=== PATIENT | female | born 2005 | race Caucasian/White ===

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

== ENCOUNTER 2023-06-06 08:00 | Outpatient (RCR) | payer OTHER, SELFPAY ==
--- NOTE | 2023-06-06 09:05 | BH.SGPN.GN ---
Behaviors/Verbalizations/Mental Status: [Patient was alert and oriented, appropriately dressed and groomed. Eye contact was good, motor activity normal, speech within normal limits. Affect congruent, mood anxious. Thoughts linear, logical, no signs of hallucinations or delusions. Reviewed Patients symptom tracker and the patient reports depressed mood, anxiety/panic attacks, agitation/irritability/anger, self-harm urges, and thoughts/risk of suicide within normal limits.] Client Response/Progress/Benefit: [Today was the patients first group. Patient was engaged and open to the discussion. Patient reported her mood to be ?anxious?. Patient stated her win and stressor are related. Patient shared that her being in group was an accomplishment because of how anxious she was. Patient said that she waited outside the building an additional 10 minutes to work the courage up to come inside. Patient was interactive and respectful with other group members about their mental wins and stressors. Patient benefited from the discussion by listening to feedback and giving input on her peer?s stressors and mental health wins. Patient will continue with IOP treatment to help develop healthy skills, promote mood stability, and improve distress tolerance. ] Narrative Note: []
--- NOTE | 2023-06-06 10:15 | BH.SGPN.GN ---
Behaviors/Verbalizations/Mental Status: [] Eye contact is good. Motor activity is appropriate. Appearance is casual. Speech is Appropriate. Mood is depressed/anxious. Affect is congruent. Thoughts are linear and logical. No evidence of psychosis. Client Response/Progress/Benefit: [] Pt was engaged and an active participant in group discussions. Attentive during psychoeducation and participated in group activity. Group discussed what contributes to a person?s perspective and how perspective can positively or negatively impact mental health treatment. Participated in group discussion on things that can interfere with perspective which group identified as; mood, physical state, past experiences, relationships, anger, current stressors, finances, and several others. Pt appeared to benefit from increasing awareness of different perspectives and how they can affect mental health. Pt will continue IOP treatment to prevent decompensation, increase healthy coping, and improve daily functioniong. Narrative Note: []
--- NOTE | 2023-06-06 11:15 | BH.SGPN.GN ---
Behaviors/Verbalizations/Mental Status: []Pt alert and oriented, casually dressed and groomed. Eye contact good. Motor activity appropriate. Speech within normal limits. Affect congruent, mood depressed and anxious. Thoughts linear, logical, no signs of hallucinations or delusions. Client Response/Progress/Benefit: []Pt was attentive and contributed to group discussion. Pt worked with group to identify strategies that can help with challenging negative perspective. Pt completed strengths exploration worksheet, identifying love, humor, modesty, empathy, and creativity as personal strengths. Pt able to acknowledge how these strengths are helping pt and can continue to help pt in mental health journey. Pt identified wanting to work on applying reframing skills when faced with stressors. Benefited from identifying personal strengths and strategies for enhancing use of identified strengths. Pt will continue IOP tx to work on application of distress tolerance skills, improve mood stability, and prevent decompensation. Narrative Note: []
--- NOTE | 2023-06-06 13:41 | BH.MTP ---
Master Treatment Plan Patient Information Program Physician:: Dr. Pro Primary Therapist:: Malaika Flowers, [facility] Psychiatric Diagnoses Psychiatric Diagnoses:: 1. Major depressive disorder, recurrent, severe without psychosis 2. Generalized anxiety disorder 3. Cluster B traits 4. History of bulimia nervosa Diagnosis Code(s):: F33.2 Estimated LOS Estimated LOS (in weeks):: 6 Problem/Goal #1 Problem/Goal #1 Stated Goal:: Client will decrease depression, feeling of worthlessness, and hopelessness due to Major Depression Disorder through Intensive Outpatient Program. Description of Barriers: Potential barriers include: anxious avoidance, negative thoughts, low motivation, hopelessness, and marijuana use. Functional Impact: The patient is a 17-year-old single female with a history of anxiety and depression who was referred to the [facility] behavioral health IOP by her primary care doctor for worsening symptoms of depression and anxiety. 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 She has been having symptoms of sadness, crying, irritability, hopelessness, worthlessness, guilt, low motivation, sleeping 6 hours a night but wants to stay in bed all day, low energy, passive thoughts of . She is a worrier by nature and has racing thoughts at times and ruminates negatively often. She is having panic attacks a few times a week. Objectives Objective #1: Stated Objective: Client will learn and utilize 2-3 healthy coping strategies to manage depressive symptoms as shown by reduced DSM-5 cross-cutting symptom measure score. Interventions: Therapist will utilize CBT techniques to assist client with understanding the connection between thoughts, feelings and behaviors. Education will be provided on behavioral activation. Therapist will assist client in learning internal coping strategies to manage depressive symptoms, along with helping client identify triggers. Discharge Criteria: Client will have achieved this goal when has practiced at least 2 healthy coping strategies and DSM 5 depression scores show a decrease. Target Date: 07/18/23 Review Date: 07/04/23 Objective #2: Stated Objective: Client will identify and replace 2-3 negative thinking patterns that reinforce depressive symptoms, worthlessness, and negative self-talk. Interventions: Therapist will help client identify distorted, negative beliefs about self and replace with more realistic, affirmative messages. Therapist will use CBT to help client increase insight to the connection between thoughts, emotions, and behaviors. Therapist will encourage client to practice thought challenging. Discharge Criteria: Client will have achieved this goal when can identify at least 2 negative thinking patterns and replace thoughts with rational thoughts. Target Date: 07/18/23 Review Date: 07/04/23 Problem/Goal #2 Problem/Goal #2 Stated Goal:: Client will reduce overall frequency, intensity, and duration of the anxiety so that daily functioning is not impaired.? Description of Barriers: Potential barriers include: anxious avoidance, negative thoughts, low motivation, hopelessness, and marijuana use. Functional Impact: The patient is a 17-year-old single female with a history of anxiety and depression who was referred to the [facility] behavioral health IOP by her primary care doctor for worsening symptoms of depression and anxiety. 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 She has been having symptoms of sadness, crying, irritability, hopelessness, worthlessness, guilt, low motivation, sleeping 6 hours a night but wants to stay in bed all day, low energy, passive thoughts of . She is a worrier by nature and has racing thoughts at times and ruminates negatively often. She is having panic attacks a few times a week. Objectives Objective #1: Stated Objective: Client will learn and implement 2-3 calming skills to reduce overall anxiety and manage anxiety symptoms. Interventions: Therapist and group sessions will help client identify physiological warning signs of anxiety, increase awareness of thoughts that increase anxiety, and identify behaviors that reinforce anxious symptoms. Group and individual counseling will teach client calming skills to help manage anxious symptoms. Discharge Criteria: Client will have achieved this goal when can verbalize at least 2 calming skills and reports skills successfully help reduce anxious symptoms. Target Date: 07/18/23 Review Date: 07/04/23 Objective #2: Stated Objective: Client will identify 2-3 cognitive distortions that lead to rumination and learn 2-3 ways to manage these thoughts to better manage anxiety as shown by reduced DSM-5 scores for anxiety. Interventions: Therapist will provide education on the most common cognitive distortions and teach client the connection between thoughts, emotions, and feelings. Therapist will assist client in identifying, challenging, and replacing dysfunctional thoughts with positive, more realistic thoughts. Discharge Criteria: Client will have met this objective when can identify at least 2 cognitive distortions, be able to reframe/challenge thoughts, and DSM 5 scores indicate decrease in anxiety. Target Date: 07/18/23 Review Date: 07/04/23
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
--- NOTE | 2023-06-08 08:40 | BH.NA ---
Physical Data Vital Signs Pulse Rate: 90 Blood Pressure: 160/85 Height/Weight Height: 1.65 m Weight:: 113.398 kg Weight in Pounds: 250.0 lbs Current Medication Compliance Medication Compliance Do you take your medication as prescribed?: Yes Nutritional History Appetite Nutritional Instructions: Describe your appetite:: Good Additional nutritional information:: Client denies change in her weight, but states since starting Effexor she does have a slight decrease in appetite and feels full easier. Functional Assessment Sleep Pattern Describe any problems with sleeping: Client states she sleeps about 5-6 hours per night. Sensory/Communication Assess Communication Problems Do you have difficulty understanding what people are saying?: No Learning Assessment Education What is your level of education?: Some College (in college currently) Medical Problems/History Pain Assessment Do you have acute or chronic pain?: No Surgical History Surgical History Have you had any surgeries? If so, list type and date:: Yes (tonsilectomy) Substance Abuse Substance Abuse Please describe substance abuse in the last 30 days:: Client states she drinks alcohol monthly or less, stating it is not kept in her house due to her father but she will drink it when she is around it. Client states she currently vapes nicotine. Client states she uses marijuana nightly. Client states she drinks usually 2-3 energy drinks per week to keep her awake at work. Mental Status Summary Mental Status Significant Findings/Observations on Appearance and Mood:: Client is alert and oriented x 4. Client is casually groomed. Client is cooperative with assessment. Client makes fair eye contact. Client's voice has normal rate and volume. Client has a somewhat restricted affect. Client makes logical associations and has normal processing. Client denies delusions/hallucinations. Client denies SI. Suicide Assessment Suicidal Ideation Are you currently or have you been suicidal in the past?: Yes Suicidal Intentional Rating Scale (SIRS): Suicidal thoughts (past) Physician Notification Past Psychiatric History MH Treatment Hx Past Psychiatric Medications:: Deonna Lamasoft Age of first mental health symptoms: Client states she was first on medication for anxiety/depression around 8th grade. Describe (age, circumstance, etc) any past hospitalizations: None. Current providers for mental health treatment (counselor, psychiatrist, caser up, etc.): None. Fall Risk Assessment Age Age: Less than 60 Mental Status Mental Status: Willing & able to ask for assistance when needed Physical Status Physical Status: No problems Impairments Impairments: None Elimination Elimination: Continent AND independent Gait or Balance Gait or Balance: Walks independently Hx of Falls History of falls in the past 6 months: No known history Medications/Substances Psychotropics:: Antidepressants Medications/substances used within the past 24 hours or ordered to administer: 1-2 of the medications/substances listed above Total Score Total Points:: 1 RN Summary of Impressions Impressions Recommendations Impressions: Psychiatric Issues: 1. Major depressive disorder, recurrent, severe without psychosis 2. Generalized anxiety disorder 3. Cluster B traits 4. History of bulimia nervosa Level of Care How do the client's current symptoms and functional deficits support need for this level of care?: Client was referred to IOP by her PCP for anxiety and depression. Client is about to end her first year of college, and states school is a stressor. Client states she has been having panic attacks when she feels overwhelmed, stating she had a panic attack yesterday when her car was having problems and shes already had it in the shop so much recently. Client states she has racing thoughts, ruminations, erratic moods and isolates herself. Client states I usually just sit in my room and think and I can't get out of my head. Client denies SI, but states she has had suicidal thoughts in the past. IOP will promote gains and prevent further decompensation while providing social support and skills training.
--- NOTE | 2023-06-08 09:00 | BH.SGPN.GN ---
Behaviors/Verbalizations/Mental Status: [Patient was alert and oriented, appropriately dressed and groomed. Eye contact was good, motor activity normal, speech within normal limits. Affect congruent, mood anxious. Thoughts linear, logical, no signs of hallucinations or delusions. Reviewed Patients symptom tracker and the patient reports depressed mood, anxiety/panic attacks, agitation/irritability/anger, self-harm urges, and thoughts/risk of suicide within normal limits.] Client Response/Progress/Benefit: [ Patient was engaged and open to the discussion. Patient reported her mood to be ?stressed and overwhelmed?. Patients stressor is that her car has started ?skipping? and she thinks the transmission is going bad. She stated she got this car this past February and has been in the shop 5 times already for this same problem. Patients first win was that she was able to have fun at her job yesterday and danced with the [facility]. Patients second win is that her dad allowed her outside cat to come inside. She said this cat is like a support animal for her. Patient was interactive and respectful with other group members about their mental wins and stressors. Patient benefited from the discussion by listening to feedback and giving input on her peer?s stressors and mental health wins. Patient will continue with IOP treatment to help develop healthy skills, promote mood stability, and improve distress tolerance. ] Narrative Note: []
--- NOTE | 2023-06-08 10:10 | BH.SGPN.GN ---
Behaviors/Verbalizations/Mental Status: [] Eye contact is good. Motor activity is appropriate. Appearance is casual. Speech is Appropriate. Mood is depressed. Affect is congruent. Thoughts are linear and logical. No evidence of psychosis. Client Response/Progress/Benefit: [] Pt actively participated in and was engaged during experiential activity. Able to relate activity to group topic of FOF, interacting and taking on a leadership role throughout. Engaged during interactive discussion on what failure means to the group in which peers identified and defined failure. Group was able to identify impact of fear of failure on mental health identifying that it can cause isolation, procrastination, self-sabotage, and negative self-talk?. Discussed that fear of failure has cause her to engage in perfectionistic behaviors and negative self-talk. Attentive during interactive discussion on the role that FOF plays in mental wellness, depression, anxiety, and growth. Benefited from increased awareness of how the role that FOF plays in mental health and decision-making. Will continue in IOP to prevent decompensation, increase healthy coping, improve self-confidence, and to stabilize mood. Narrative Note: []
[2023-06-08 10:44] VITALS: BP 160/85; PULSE 90
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
--- NOTE | 2023-06-08 12:02 | BH.DR.ITP ---
Initial Treatment Plan Patient Information Visit Information: ADMISSION DATE: EXPECTED LOS: 4-6 weeks Problems/Symptoms Problem #1:: Depression Symptom:: Sadness, hopelessness, worthlessness, guilt, low energy, passive thoughts of , irritability Problem #2:: Anxiety Symptom:: Worry, rumination, panic attacks, avoidance
--- NOTE | 2023-06-08 14:39 | BH.MDN ---
Multi-Disciplinary Note Note 45-min Individual: Time Started:: 11:15 Date: 06/08/23 Purpose of session/treatment goals addressed:: Purpose of session was to build rapport, gather background information, and identify treatment goals for IOP. Eye Contact:: Fair Motor Activity:: Restless Appearance:: Casual Speech:: Appropriate Mood:: Anxious Affect:: Congruent Thoughts:: Linear, Logical and No evidence of hallucinations/delusions noted Staff Interventions:: CBT techniques, rapport building, strengths perspective, treatment planning and goal setting Client Response:: Client is seeking IOP treatment after being referred by her PCP due to worsening depression and anxiety. She has been having symptoms of sadness, crying, irritability, hopelessness, worthlessness, guilt, low motivation, sleeping 6 hours a night but wants to stay in bed all day, low energy, passive thoughts of . 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 Client shared Tuesday she struggled with negative thoughts because she convinced herself that her mom prefers to be with her cousin versus being rather her. Client stated this led to her shutting down and getting stuck in her negative thought patterns. used to spend more time with mom but lately they have not done as much together which client recognizes she is personalizing the situation. Client stated she would like to work on improving her view of self because she often thinks negatively about her body and personality. Client reports she struggle with body image issues since seventh grade due to people making negative comments about her weight. Client stated she often wears baggy clothes and sucks in my stomach anytime she is in public. Client reported there is not a lot she likes about her body that is above her waist. Client stated in addition to having negative body image issues she also struggles with anxious avoidance. Client reported her anxiety will keep her from hanging out with her friends or trying new things. Client stated if she has to go to a restaurant she must read the menu before going in because she gets anxious about being an inconvenience to others. Client stated well in IOP she would like to learn how to manage her anxiety better, decrease anxious avoidance, and improve view of self. Risks/Concerns:: Denies suicide ideation, plan, or intention. Has occasional passive thoughts of . No active SI. Future oriented. Progress Toward Goals/Plan:: Progress limited given first week in IOP. Client reports anxiety significantly hinders her ability to engage in new activities and go to certain public places. Client's mental health has kept her from hanging out with her friends as much as she usually would. Client to continue IOP to improve daily functioning, increase healthy coping, and prevent decompensation. Time Stopped:: 12:00
== END 2023-06-12 23:59 ==
LOC: BHIOP 08:00
PROVIDERS: PCP Pediatrics; Referring Provider Psychiatry & Neurology Psychiatry; Visit Provider Psychiatry & Neurology Psychiatry
DX: F33.2 Major depressive disorder, recurrent severe without psychotic features (principal); F41.1 Generalized anxiety disorder
CPT/HCPCS: S9480; 90834; 90853

== ENCOUNTER 2023-06-13 07:15 | Outpatient (RCR) | payer OTHER, SELFPAY ==
[2023-06-13 00:33] VITALS: BP 160/85; PULSE 90
--- NOTE | 2023-06-14 10:15 | BH.SGPN.GN ---
Behaviors/Verbalizations/Mental Status: []Pt alert and oriented, neatly dressed and groomed. Eye contact good. Motor activity appropriate. Speech within normal limits. Affect congruent, mood euthymic. Thoughts linear, logical, no signs of hallucinations or delusions. Client Response/Progress/Benefit: [] Pt was an active participant, AEB taking notes and providing input in group discussions and activities. Attentive during psychoeducation. Pt engaged during interactive discussion in which the group defined self-care and discussed its benefits. Group discussed benefits of self-care which included; better self-esteem, reduce stress, and boost mood. Pt participated in small group where they worked to identify common self-care ?myths.? Pt?s group worked on self-care being too time consuming, self-care being only fun things, and self-care being too expensive. Pt shared she struggles with feeling imbalanced in her friendships because pt ?takes care of all my friends and they don?t do that for me.? Benefited from increased awareness of self-care, its benefits, and the consequences of not utilizing self-care strategies. Will continue IOP tx to prevent decompensation, improve daily functioning, and gain healthy coping skills. Narrative Note: []
--- NOTE | 2023-06-14 11:15 | BH.SGPN.GN ---
Behaviors/Verbalizations/Mental Status: []Pt alert and oriented, casually dressed and groomed. Eye contact good. Motor activity appropriate. Speech within normal limits. Affect congruent, mood anxious. Thoughts linear, logical, no signs of hallucinations or delusions. Client Response/Progress/Benefit: [] Pt engaged participant AEB completing self-assessment worksheet and providing input throughout discussion. Pt completed worksheet identifying current self-care practices and what self-care activities Pt wants to start using. Pt selected social self-care to begin practicing more consistently. Pt plans to do this by planning more time with friends. Appeared to benefit from completing the self-care evaluation and gaining insights into current self-care practices, as well as identifying areas in which pt would like to improve upon. Pt will continue IOP tx to improve distress tolerance, increase healthy coping skills, and prevent decompensation.
--- NOTE | 2023-06-14 15:28 | BH.MDN ---
Multi-Disciplinary Note Note 60-min Individual: Time Started:: :02 Date: 06/14/23 Time Stopped:: 09:55
--- NOTE | 2023-06-16 09:00 | BH.SGPN.GN ---
Behaviors/Verbalizations/Mental Status: [] Eye contact is good. Motor activity is appropriate. Appearance is casual. Speech is Appropriate. Mood is depressed. Affect is flat. Thoughts are linear and logical. No evidence of psychosis. Reviewed daily check in sheet and no reports of suicidal ideations or intent. Client Response/Progress/Benefit: [] Pt was an active participant in group discussion. Attentive. Struggled to identify mental health wins and healthy habits. States I'm not feeling present today and feel like I'm just going through the movements. She talked about experiencing dissociation and how this impacts her mental health and functioning. Reports feeling as if there is no spice or meaning in her life. Life is very mundane. She also talked extensively about obsessive thoughts about a possible relationship however the other person does not appear to be as committed. Insight that she has limited knowledge of what a healthy relationship looks like. Group was supportive and provided feedback which was benefitical. Limited progress notes. Will continue in IOP to maintain safety, increase healthy coping, and improve functioning. Narrative Note: [] Behaviors/Verbalizations/Mental Status: [] Eye contact is good. Motor activity is appropriate. Appearance is casual. Speech is Appropriate. Mood is depressed. Affect is flat. Thoughts are linear and logical. No evidence of psychosis. Reviewed daily check in sheet and no reports of suicidal ideations or intent. Client Response/Progress/Benefit: [] Pt was an active participant in group discussion. Attentive. Struggled to identify mental health wins and healthy habits. States I'm not feeling present today and feel like I'm just going through the movements. She talked about experiencing dissociation and how this impacts her mental health and functioning. Reports feeling as if there is no spice or meaning in her life. Life is very mundane. She also talked extensively about obsessive thoughts about a possible relationship however the other person does not appear to be as committed. Insight that she has limited knowledge of what a healthy relationship looks like. Group was supportive and provided feedback which was benefitical. Limited progress notes. Will continue in IOP to maintain safety, increase healthy coping, and improve functioning. Narrative Note: []
--- NOTE | 2023-06-16 10:05 | BH.SGPN.GN ---
Behaviors/Verbalizations/Mental Status: [] Client alert and oriented, casually dressed and groomed. Eye contact avoidant, Motor activity appropriate. Speech within normal limits. Affect congruent, mood euthymic. Thoughts linear, logical, no signs of hallucinations or delusions Client Response/Progress/Benefit: [] Client was an active participant in group discussion and experiential activity. Attentive during psychoeducation on resilience. Participated in interactive discussion with peers on the definition of resilience and where it comes from. Group identified that resiliency can be impacted by; relationships. past experiences, trauma, and current mental health state. Group also worked together to identify the benefits of being resilient and how it is related to mental health. Group with client's input identified increased confidence, ability to make decisions, and adaptability of benefits of being resilient. Able to relate experiential activity of group juggle to topics of resilience. Worked well with peers in small group in which they identified factors that contribute to resilience. Benefited from increased awareness of resilience and the factors that contribute to building resilience. Will continue in IOP to increase self worth and prevent decompensation Narrative Note: []
--- NOTE | 2023-06-16 11:05 | BH.SGPN.GN ---
Behaviors/Verbalizations/Mental Status: [] Client alert and oriented, casually dressed and groomed. Eye contact avoidant. Motor activity appropriate. Speech within normal limits. Affect congruent, mood euthymic. Thoughts linear, logical, no signs of hallucinations or delusions Client Response/Progress/Benefit: [] Client responded well to session AEB completing the resilience worksheet provided. Client participated in the discussion and worked cooperatively with group to identify strategies to enhance each of the components discussed. Client reports belief they already use resilience trait of ?making connections? Client shared they are people person and people are drawn to them. Client stated they would like to continue to develop resilience trait of ?nuruting a positive view of self? Client seemed to benefit from discussing strategies for improving personal resilience and identifying resilience traits Client already possesses. Will continue IOP tx to reduce negative thinking patterns, and increase overall functioning Narrative Note: []
--- NOTE | 2023-06-20 09:00 | BH.SGPN.GN ---
Behaviors/Verbalizations/Mental Status: [Patient was alert and oriented, appropriately dressed and groomed. Eye contact was good, motor activity normal, speech within normal limits. Affect congruent, mood tired. Thoughts linear, logical, no signs of hallucinations or delusions. Reviewed Patients symptom tracker and the patient reports moderate in depressed mood, anxiety/panic attacks, low to moderate in agitation/irritability/anger and self-harm urges and behaviors. Patient does not report symptoms of thoughts or risk of suicide. ] Client Response/Progress/Benefit: [Patient was engaged and open to the discussion. Patient reported her mood to be ?tired?. Patients first win is that she didn?t ?bed rot? this weekend and went out to socialize with her cousin and some ?new friends?. Patient second win is that her and these new friends she made went to an abandoned hospital and thinks it was haunted. She stated she had a good time and hasn?t done this in a while. Her stressor was that these new friends told her she ?looks like a lesbian? and stated she has reminiscing on this since Tuesday because she doesn?t want to be perceived as one. Patient was interactive and respectful with other group members about their mental wins and stressors. Patient benefited from the discussion by listening to feedback and giving input on her peer?s stressors and mental health wins. Patient will continue with IOP treatment to help develop healthy skills, promote mood stability, and improve distress tolerance. ] Narrative Note: []
--- NOTE | 2023-06-20 10:15 | BH.SGPN.GN ---
Behaviors/Verbalizations/Mental Status: []Patient was alert and oriented, casually dressed and groomed. Eye contact was good, motor activity normal, speech within normal limits. Affect congruent, mood content. Thoughts linear, logical, no signs of hallucinations or delusion Client Response/Progress/Benefit: []Pt participated in the group discussions AEB providing input and taking notes. Attentive during psychoeducation Goal Setting. Participated during the discussion on common barriers which the group identified as: lack of motivation, making excuses, not feeling good enough, and lack of support. Group also identified benefits sense of purpose, improved self-confidence, more motivation for other goals, and improved mental health. Pt reports struggling specifically with barriers of procrastination and not knowing where to start. Benefited from increased awareness of mental health benefits of goals as well as psychoeducation on SMART goal criteria. Will continue in IOP to prevent decompensation, improve daily functioning, and increase ability to manage emotions. Narrative Note: []
--- NOTE | 2023-06-20 11:10 | BH.SGPN.GN ---
Behaviors/Verbalizations/Mental Status: []Pt alert and oriented, casually dressed and groomed. Eye contact good. Motor activity appropriate. Speech within normal limits. Affect congruent, mood euthymic. Thoughts linear, logical, no signs of hallucinations or delusions. Client Response/Progress/Benefit: [] Pt was engaged during discussion and willing to complete the worksheet challenging them to develop a personal SMART goal. Pt chose the goal of giving self credit for good things she does. Pt stated this will improve self esteem and attitude towards herself. Pt identified looking bad, sucking in her stomach, and thinking she is unfixable as potential barriers. Identified solutions such as taking shower to rest, be herself, and talking about feelings. Pt receptive to identifying solutions for these barriers and willing to begin working on this goal. Benefited from this group by developing a short-term SMART goal related to mental health. Will continue IOP tx to increase healthy coping skills, challenge distortions, and prevent decompensation.
--- NOTE | 2023-06-22 09:00 | BH.SGPN.GN ---
Behaviors/Verbalizations/Mental Status: [Patient was alert and oriented, appropriately dressed and groomed. Eye contact was good, motor activity normal, speech within normal limits. Affect congruent, mood content. Thoughts linear, logical, no signs of hallucinations or delusions. Reviewed Patients symptom tracker and the patient reports moderate in anxiety/panic attacks, low to moderate in depressed mood, agitation/irritability/anger, and low in self-harm urges. ?Patient does not report symptoms of thoughts/risk of suicide] Client Response/Progress/Benefit: [Patient was engaged and open to the discussion. Patient reported her mood to be ?stressed?.?Patients stressor is that she has an exam after group and is unsure how she will do. Patients first win is that she gets to go to work today. Patients second win is that although her work, social, and personal life are not very balanced right now, she was able to turn in her homework on time this week. Patient was interactive and respectful with other group members about their mental wins and stressors. Patient benefited from the discussion by listening to feedback and giving input on her peer?s stressors and mental health wins. Patient will continue with IOP treatment to help develop healthy skills, promote mood stability, and improve distress tolerance. ?] Narrative Note: []
--- NOTE | 2023-06-22 10:05 | BH.SGPN.GN ---
Behaviors/Verbalizations/Mental Status: [] Eye contact is good. Motor activity is appropriate. Appearance is casual. Speech is Appropriate. Mood is euthymic. Affect is congruent. Thoughts are linear and logical. No evidence of psychosis. Client Response/Progress/Benefit: [] Pt was actively engaged, providing input at times, and taking notes throughout session. Connected with the topic of pitfalls and listened to group discussion on internal and external barriers that prevent from choosing a healthier path to mental wellness. Group worked together to identify examples of personal internal pitfalls and pt identified theirs to the group. Pt benefited from group as pt learned to better identify and normalize potential barriers to improving mental health symptoms. Pt also gained awareness of the difference between external triggers and self-sabotaging behaviors. Will continue in IOP to stabilize mood, improve functioning, and increase healthy coping skills. Narrative Note: []
--- NOTE | 2023-06-23 10:15 | BH.SGPN.GN ---
Behaviors/Verbalizations/Mental Status: []Pt alert and oriented, neatly dressed and groomed. Eye contact good. Motor activity appropriate. Speech within normal limits. Affect congruent, mood content. Thoughts linear, logical, no signs of hallucinations or delusions. Client Response/Progress/Benefit: [] Pt an active participant throughout. Participated during interactive discussion on defining conflict (internal/external) and possible benefits to conflict. Attentive during psychoeducation on conflict styles and engaged during small group activity in which peers identified the benefits and consequences to each conflict style. Pt identified their primary conflict style as accommodating type which impacts pt?s mental health and self-esteem. Pt shared that she finds benefits with this type too, so pt is not ready to change it. Benefited from increased awareness of the impact of conflict styles in mental health. Will continue in IOP tx to reduce use of unhealthy coping skills, improve boundary setting, and reduce intensity of symptoms. ?? Narrative Note: []
--- NOTE | 2023-06-23 15:00 | BH.SGPN.GN ---
Behaviors/Verbalizations/Mental Status: [] Eye contact is good. Motor activity is appropriate. Appearance is casual. Speech is Appropriate. Mood is content. Affect is congruent. Thoughts are linear and logical. No evidence of psychosis. Client Response/Progress/Benefit: [] Pt was an active participant in group discussions and activity. Engaged with peers in activity and identifying healthy ways to approach each conflict scenario. Group discussed various conflict resolution skills that can be useful in addressing conflict outside of IOP. Benefited from practicing and learning conflict resolution skills during group activity. Able to identify areas pt wants to work on to improve how pt manages conflict both internally and externally. Expressed wanting to work on improving her willingness to make decisions independently rather than relying on others to do it for her. Will continue in IOP to stabilize mood, improve functioning in daily life, and prevent decompensation. Narrative Note: []
--- NOTE | 2023-06-23 15:29 | BH.MDN ---
Multi-Disciplinary Note Note 45-min Individual: Time Started:: 09:00 Date: 06/23/23 Time Stopped:: 09:45
--- NOTE | 2023-06-28 09:05 | BH.SGPN.GN ---
Behaviors/Verbalizations/Mental Status: [] Eye contact is good. Motor activity is appropriate. Appearance is disheveled. Speech is Appropriate. Mood is depressed/irritable. Affect is congruent. Thoughts are linear and logical. No evidence of psychosis. Reviewed daily check in sheet and no reports of suicidal ideations or intent. Client Response/Progress/Benefit: [] Pt participated at times during the group discussion. Attentive. Able to identify mental health wins and healthy habits. Attempting to reconnect with friends and build social support which is beneficial to her mental health. Poor sleep last evening (2-3 hours) and is feeling very tired this AM. Poor sleep related to ruminations last evening. Shared with the group that she is beginning to identify the negatives to cannabis use with increased awareness of how it impacts her physical and mental health. Motivation to decrease her use I'm trying to cut back. Peers provided feedback which was beneficial. Progress noted per pt report. Will continue in IOP to prevent decompensation, stabilize mood, and increase healthy coping. Narrative Note: []
--- NOTE | 2023-06-28 10:15 | BH.SGPN.GN ---
Behaviors/Verbalizations/Mental Status: [] Eye contact is good. Motor activity is appropriate. Appearance is casual. Speech is Appropriate. Mood is euthymic. Affect is full. Thoughts are linear and logical. No evidence of psychosis. Client Response/Progress/Benefit: [] Pt was an active participant, AEB taking notes and providing input in group discussions and activities. Attentive during psychoeducation. Pt engaged during interactive discussion in which the group defined self-care and discussed its benefits. Group discussed benefits of self-care which included; better self-esteem, increased energy, feeling refreshed, increased motivation, reduce stress, and boost mood. Pt participated in small group where they worked to identify common self-care ?myths? or obstacles. Pt identified I never know what to do as an obstacle to self-care. Benefited from increased awareness of self-care, its benefits, and the consequences of not utilizing self-care strategies. Will continue IOP to prevent decompensation, increase healthy coping, and to stabilize mood. Narrative Note: []
--- NOTE | 2023-06-28 11:20 | BH.SGPN.GN ---
Behaviors/Verbalizations/Mental Status: []Pt alert and oriented, casually dressed and groomed. Eye contact good. Motor activity appropriate. Speech within normal limits. Affect congruent, mood euthymic. Thoughts linear, logical, no signs of hallucinations or delusions. Client Response/Progress/Benefit: [] Pt engaged participant AEB completing self-assessment worksheet and providing input throughout discussion. Pt completed worksheet identifying current self-care practices and what self-care activities Pt wants to start using. Pt selected physical and social self-care to begin practicing more consistently. Pt plans to do this by buying a membership to [employer] and scheduling a hangout with her friend. Appeared to benefit from completing the self-care evaluation and gaining insights into current self-care practices, as well as identifying areas in which Pt would like to improve upon. Pt will continue IOP tx to promote mood stability, reduce negative self-talk, and improve daily functioning. Narrative Note: []
--- NOTE | 2023-06-29 15:30 | BH.TPR ---
Treatment Plan Review Demographics Date of Treatment Plan Review:: 06/29/23
--- NOTE | 2023-06-30 09:03 | BH.SGPN.GN ---
Behaviors/Verbalizations/Mental Status: [] Eye contact is good. Motor activity is appropriate. Appearance is casual. Speech is Appropriate. Mood is anxious. Affect is constricted. Thoughts are linear and logical. No evidence of psychosis. Reviewed daily check in sheet and no reports of suicidal ideations or intent. Client Response/Progress/Benefit: [] Pt participated at times during the group discussion. Attentive. Daily symptom tracked notes 3/5 for anxiety and 2/5 for depression. Able to identify mental health wins and healthy habits. Pt stated she was anxious this morning because she was late to IOP. Pt reported she is usually at least 20 minutes early to every appointment and if she isn't she is anxious. Pt stated she made it to IOP despite her anxiety. Pt reported mental health positive as hanging out with friends. Additional positive as getting caught up on some school assignments. Benefited from group support, encouragement, and feedback. Will continue in IOP to decrease anxiety, increase healthy coping skills, and prevent decompensation.
--- NOTE | 2023-06-30 11:10 | BH.SGPN.GN ---
Behaviors/Verbalizations/Mental Status: []Pt alert and oriented, casually dressed and groomed. Eye contact good. Motor activity appropriate. Speech within normal limits. Affect congruent, mood content. Thoughts linear, logical, no signs of hallucinations or delusions. Client Response/Progress/Benefit: []Pt responded well to session, contributing and attentive throughout discussion. Pt identified a negative thought that has kept them stuck. Pt's thought was I am not the 'right' size.? Pt reported when they think this way, they get depressed and anxious resulting in isolating and turning to over-eating which reinforces negative thoughts about her weight. Pt worked to reframe the thought by finding more rational, realistic ways to look at the thoughts and then processed them within group setting. Pt reframed the thought to ?I am built the way I am and am still able to function as a healthy human?. Pt appeared to benefit from practicing challenging negative thinking. Pt will continue IOP tx to prevent decompensation, increase mood stability, and continue to reduce distorted thoughts. ? Narrative Note: []
--- NOTE | 2023-06-30 15:29 | BH.MDN ---
Multi-Disciplinary Note Note 45-min Individual: Time Started:: 10:10 Date: 06/30/23 Time Stopped:: 10:55
--- NOTE | 2023-07-05 09:00 | BH.SGPN.GN ---
Behaviors/Verbalizations/Mental Status: []Eye contact is good. Motor activity is appropriate. Appearance is casual. Speech is Appropriate. Mood is anxious. Affect is constricted. Thoughts are linear and logical. No evidence of psychosis. Reviewed daily check in sheet and denies suicidal thoughts or intention. Client Response/Progress/Benefit: [] Client responded well to session AEB listening to others and sharing thoughts/feelings. Client reported she is feeling stressed out because her mom broke her leg yesterday. No client is anxious that she is feeling responsible for a lot more at the home. Client somewhat receptive to thought challenge by therapist trying to help client recognize that she is currently making assumptions and what her expectations will be because she has not talked to her mom about them yet. Client stated mental positive as having all A's at college this semester. Client reported additional positive as accomplishing anxiety exposure goal by showing up late to IOP today. Appeared to benefit from support from peers. Will continue IOP tx to decrease anxious avoidance, challenge distortions, and prevent decompensation. Narrative Note: []
--- NOTE | 2023-07-05 13:21 | BH.MDN ---
Multi-Disciplinary Note Note 45-min Individual: Time Started:: 10:14 Date: 07/05/23 Purpose of session/treatment goals addressed:: Purpose of session was to address goals 1 and 2 from MTP. Additional focus on discussing tentative discharge plan. Eye Contact:: Fair Motor Activity:: Restless Appearance:: Casual Speech:: Appropriate Mood:: Anxious and Dysthymic Affect:: Constricted Thoughts:: Linear, Logical and No evidence of hallucinations/delusions noted Staff Interventions:: thought challenging, motivational interviewing, CBT techniques, strengths perspective, goal setting, taught coping skills and other (Problem solving) Client Response:: Client stated she is feeling very overwhelmed with all the stressors she has going on her life. Client reported she did find herself falling back in the trap of reflecting on all the negatives last night which did result in her feeling more down and depressed yesterday. Client states she does feel like there is a lot on her plate and does not know how to manage it all. Therapist help client write out her stressors currently and identify one step or strategy that could be helpful to address each thing on her plate. Client shared the things on her plate include best friend leaving for [place], mom just breaking her leg which results in more responsibility for client, school, work, IOP, being social. Client connected with psychoeducation about dialectical thinking in regards to applying that concept and strategy when it comes to her best friend leaving. Therapist men's swim coach client that she can utilize a logical thinking to remind herself that she can be sad about her friend leaving and still function. Client stated she has been thinking that once her friend leaves she is getting go back to how she used to be of being down and depressed and not functioning. Client struggling with the idea of challenging his thoughts due to the connection she has with him. Client able to challenge stress associated with school because she realizes she only has 2 to 3 weeks left before the semester is over and she will get a break. In regards to stress associated with her mom not being able to do as much due to a broken leg therapist encouraged client to have open discussion about expectations and limitations for client due to all the other responsibilities she has. Client recognizes a lot of her anxiety associated with this stressor is anxious thoughts because she has not had an actual conversation with mom yet. Created goal to reach out to a friend today to see if they would be willing to go to health appointment gym tomorrow so client can give it a try. In discussion about discharge client expressed anxiety about being done with IOP. Client stated she will reflect on what she wants to accomplish while she is still in the program prior to discharge. Risks/Concerns:: Denies suicide ideation, plan, or intention. Progress Toward Goals/Plan:: Progress note with client reporting improved ability to get out of the house and has been more social lately. Client able to manage her anxiety a little bit more effectively compared to few weeks ago. Plan is for client to meet with IOP psychiatrist and expressed difficulty with sleep and feeling like her medication is starting to not be as effective. Client to continue IOP to increase utilization of healthy coping skills, challenge distortions, improve view of self, and prevent decompensation. Time Stopped:: 10:57
--- NOTE | 2023-07-06 13:16 | PCM.BH.PN_ITS ---
Progress Note Progress Note: History of Present Illness/Interim History: The patient is a 17-year-old single female with a history of anxiety and depression who is seen in follow- up at the [facility] behavioral health IOP. I last saw the patient 1 month ago and at that time no medication changes were made. According to the staff the patient has been consistent in attendance and engaged in the program. She is trying to decrease her marijuana use. She feels she is learning valuable new skills to help with her mental health issues. She feels her sadness is slowly getting better but she still has some crying episodes. She is trying to start exercising more but is afraid to enter the gym when she goes there as she is afraid people will be looking at her and criticizing her. She is sleeping about 6 hours a night. She no longer has hopelessness but still has occasional worthlessness. She endorses guilt and low energy. She denies now passive thoughts of and denies suicidal ideation, plan for suicide, homicidal ideation, hallucinations, delusions or symptoms of jeevan or hypomania. She is still worrying at but her panic attacks have decreased to only about once a month now. She denies any recent purging. She last cut her wrist 2 weeks ago for 3 days consecutively and she had not cut herself for 2 years prior to that. She is uncertain of the trigger but she states that now she is trying to avoid cutting by wearing a rubber bracelet that she snaps. She denies any other self-harm. Current Psychiatric Medications: [] Effexor XR increased to 75 mg p.o. daily 5 weeks ago. Mental Status Examination: [] The patient is a 17-year-old overweight female who is seen wearing glasses and is casually dressed and groomed with good hygiene. She is ambulatory with a normal gait and has no psychomotor agitation or retardation. Eye contact is good and speech is normal rate and rhythm and fluent with no pressure. Mood is depressed and anxious. Affect is constricted and at times almost tearful. Thought process is goal directed and organized. Thought content: There is no evidence of passive thoughts of , suicidal ideation, plan for suicide, homicidal ideation, hallucinations, delusions or jeevan. The patient is very self-conscious about exercising in public. Reality testing is intact. Judgment is intact. Insight fair. Impulsivity is high. Diagnoses: [] 1. Major depressive disorder, recurrent, severe without psychosis 2. Generalized anxiety disorder 3. Cluster B traits 4. History of bulimia nervosa 5. Primary support in school/career issues Plan: [] The patient will continue the IOP and behavioral health at [facility] as the structure, support, education and group therapy will hopefully prevent worsening of the patient's symptoms which could require hospitalization she felt safe during the interview and if it anytime she does not feel safe she agrees to let us know or go to the emergency room. The risks, options, possible complications and side effects of the medication were discussed with the patient again and she understands and accepts these. She agrees to increase her Effexor XR to 150 mg p.o. daily and prescription is sent in for this. She will continue to follow-up with her outpatient providers and I will see the patient in follow-up in 2 weeks. She will continue to try to decrease her marijuana use.
--- NOTE | 2023-07-07 09:05 | BH.SGPN.GN ---
Behaviors/Verbalizations/Mental Status: [] Eye contact good. Motor activity appropriate. Speech within normal limits. Affect congruent, mood dysthymic. Thoughts linear, logical, no signs of hallucinations or delusions. Reviewed client?s symptom tracker, denies SI, plan, or intent as of 07/07/2023. Client Response/Progress/Benefit: [] Client receptive of session, attentive and willing to process with group. Identified mental health ?wins? as challenging herself to use opposite action to put on her workout clothes before group so she is more likely to go to the gym following groups for the day. Reports struggling with following through with this goal and has already begun to talk herself out of it today. Receptive of suggestions and supportive feedback from the group. Went on to identify an additional win as having straight A's this semester despite mental health struggles. Identified current stressor as upcoming finals and shared feeling burned out. Did well to identify skills she can use and giving herself things to look forward to after completing schoolwork for the day. Client appeared to benefit from group support and encouragement. Recommended continued IOP tx to continue to improve mood stability, promote consistent skill application, and prevent decompensation. Narrative Note: []
--- NOTE | 2023-07-07 10:10 | BH.SGPN.GN ---
Behaviors/Verbalizations/Mental Status: []Eye contact is good. Motor activity is appropriate. Appearance is casual. Speech is Appropriate. Mood is euthymic. Affect is congruent. Thoughts are linear and logical. No evidence of psychosis. Client Response/Progress/Benefit: [] Pt was an active participant in activity and taking notes during group discussion. Attentive during psychoeducation and interactive discussion on coping skills included why people use unhealthy skills. Group came up with list of unhealthy coping skills and pt identified personal ones as substances, sleep, letting negative thoughts overpower her, and working too much. Group discussed the effects of how unhealthy coping skills can impact mental health in a negative way. Participated during experiential activity and was able to relate the activity to group topic regarding the benefits of developing strong internal and external support system. Benefited from increased understanding of unhealthy coping skills and the need for developing healthy internal and external coping skills. Pt will continue IOP tx to prevent decompensation, improve daily functioning, and increase distress tolerance [place]. Narrative Note: []
--- NOTE | 2023-07-07 11:10 | BH.SGPN.GN ---
Behaviors/Verbalizations/Mental Status: []Pt alert and oriented, casually dressed and groomed. Eye contact good. Motor activity appropriate. Speech within normal limits. Affect congruent, mood anxious and euthymic. Thoughts linear, logical, no signs of hallucinations or delusions. Client Response/Progress/Benefit: [] Pt responded well to session, taking notes and contributing when prompted. Group discussed the different categories of coping skills which included distraction, emotional release, grounding, self-love, and thought challenging.? Pt participated in creating a coping skills ?menu? from the five categories of coping skills. Pt's coping skill menu included: music, painting, positive self-talk, and self-compassion. Appeared to benefit from increasing repertoire of healthy coping skills. Will continue IOP tx to prevent decompensation, improve daily functioning, and increase distress tolerance skills. Narrative Note: []
--- NOTE | 2023-07-12 09:05 | BH.SGPN.GN ---
Behaviors/Verbalizations/Mental Status: [] Eye contact is good. Motor activity is appropriate. Appearance is disheveled. Speech is Appropriate. Mood is depressed/irritable. Affect is flat. Thoughts are linear and logical. No evidence of psychosis. Reviewed daily check in sheet and no reports of suicidal ideations or intent. Client Response/Progress/Benefit: [] Pt participated when prompted. Attentive. I'm stressed today. Daily symptom tracker notes 4/5 for irritability, 3/5 for depression, and 1/5 for self-harm urges. Numerous tests, assignments, and projects are coming due to next week as her semester is ending which is stressful. She has not been keeping up with her assignments. She set aside time recently however didn't get to far when attempting to complete her responsibilities. Decreased sleep and external commitments such as work and IOP in her eyes have led to limited progress on school work. Feeling overwhelmed with urges to give up or not complete assignments. Insight that this is self-sabotage. Group reframed her negative thinking and cognitive distortions and provided feedback/strategy to identify an assignment at a time and place small goals which may seem less daunting. Limited progress. Will continue in IOP to maintain safety, increase healthy coping,and to prevent decompensation. Narrative Note: []
--- NOTE | 2023-07-12 10:10 | BH.SGPN.GN ---
Behaviors/Verbalizations/Mental Status: []Eye contact is fair. Motor activity is appropriate. Appearance is casual. Speech is Appropriate. Mood is anxious. Affect is constricted. Thoughts are linear and logical. No evidence of psychosis. Client Response/Progress/Benefit: []Pt participated during the group discussion. Attentive during psychoeducation and actively engaged during experiential activity. Participated during interactive discussion on aspects of fixed mindset. Group identified several aspects of fixed mindset which include: inflexible, belief that one cannot grow, absolute thinking, and all of one's skills, traits, and behaviors can't change. Group identified personal examples of fixed thinking in which pt shared personal fixed thought as I'm always going to be this way. Benefited from increased understanding of personal fixed mindsets and how they can impact mental health. Will continue in IOP to improve view of self, challenge distortions, and prevent decompensation.
== END 2023-07-12 23:59 ==
LOC: BHIOP 07:15
PROVIDERS: PCP Pediatrics; Referring Provider Psychiatry & Neurology Psychiatry; Visit Provider Psychiatry & Neurology Psychiatry
DX: F33.2 Major depressive disorder, recurrent severe without psychotic features (principal); F41.1 Generalized anxiety disorder; F50.2 Bulimia nervosa; Z79.899 Other long term (current) drug therapy
CPT/HCPCS: S9480; 90832; 90834; 90837; 90853

== ENCOUNTER 2023-07-13 06:32 | Outpatient (RCR) | payer OTHER, SELFPAY ==
[2023-07-13 00:44] VITALS: BP 160/85; PULSE 90
--- NOTE | 2023-07-19 09:00 | BH.SGPN.GN ---
Behaviors/Verbalizations/Mental Status: [] Client alert and oriented, casual appearance. Eye contact fair. Motor activity appropriate. Speech within normal limits. Affect congruent, mood anxious and sad. Thoughts linear, logical, no signs of hallucinations or delusions. Reviewed client?s symptom tracker, no risk for suicidal ideation, plan, or intent. Client Response/Progress/Benefit: [] Client responded well to session AEB listening to others and sharing thoughts/feelings. Client stated she is feeling confused because she is experiencing numerous emotions at once. Client stated she is feeling sad because her best friend just moved out of state for work. Client reported she is trying to manage her emotions/mood since he left, but stated it's been a challenge. Client stated a mental health positive is that she has an upcoming trip with friends that she is excited about. Client stated she has been doing overall okay during the day with her mood and functioning, but struggles with lower mood in the evening. Appeared to benefit from support from peers. Will continue IOP tx to increase consistent use of healthy coping skills, challenge distortions, and prevent decompensation.
--- NOTE | 2023-07-19 10:05 | BH.SGPN.GN ---
Behaviors/Verbalizations/Mental Status: []Eye contact is good. Alert and oriented. Motor activity is appropriate. Appearance is casual. grooming is appropriate. Speech is Appropriate. Mood is dysthymic. Affect is congruent. Thoughts are linear and logical. No evidence of psychosis or hallucinations. Client Response/Progress/Benefit: []Client an active participate AEB providing contributions, listening attentively to others, and taking notes throughout. The group identified the impact of emotions on communication such as change in tone, body language, shutting down, misperceiving the communication, and willingness to communicate. Client shared struggling with shutting down when experiencing increased anger or sadness. During group activity, client did well to challenge herself to participate and reflected on feeling frustrated when struggling while trying to communicate instructions to fellow participants in order to accomplish the group goal. Client benefited from session by gaining an increased understanding on the importance of managing emotions to improve daily functioning. Client will continue IOP to further improve mood stability, improve use of skills for better symptom management, and prevent decompensation. Narrative Note: []
--- NOTE | 2023-07-19 13:35 | BH.MDN ---
Multi-Disciplinary Note Note 45-min Individual: Time Started:: 11:10 Date: 07/19/23 Purpose of session/treatment goals addressed:: Purpose of session was to address goals 1 and 2 from [facility]. Eye Contact:: Fair Motor Activity:: Restless Appearance:: Casual Speech:: Appropriate Mood:: Anxious and Depressed Affect:: Constricted Thoughts:: Linear, Logical and No evidence of hallucinations/delusions noted Staff Interventions:: thought challenging, CBT techniques, discharge planning, strengths perspective and goal setting Client Response:: Client reported she has been working on reframing thoughts and looking at the positives more often. Client stated she has been more irritable with parents because they keep checking in on her. Client stated she feels like they are asking if she is okay all the time. Client responded well to therapist challenging her perspective, helping client recognize that her parents are anxious about her due to her recent mental health struggles. Client able to see this perspective and discussed strategies to manage this stressor. Client reported she did have passive thoughts of 2 days ago, but was able to manage the thoughts effectively. Client stated her biggest goal is to get her finals for college completed. Client stated she will have decreased stress once she is on break from college for the summer. Client stated she is feeling good about next week being her last week in [facility]. client reported she knows she has the skills needed to help her manage her symptoms. Client admits she needs to work on using her skills more consistently. Client reported she is managing stressors more effectively lately by not ruminating on the situations or moping for multiple days. Risks/Concerns:: Denies suicidal ideation, plan, or intention to date. Progress Toward Goals/Plan:: Progress noted with client reporting ability to manage passive thoughts of 2 days ago. Client also reporting improved mood management, decreased ruminations of stressors, and trying to challenge distorted thoughts. Client still reporting moments in which she stays stuck on the negative. Client is to continue IOP to increase consistent use of healthy coping skills, challenge distorted thoughts, and prevent decompensation. Plan is for client to discharge from [facility] next week. Time Stopped:: 12:00
--- NOTE | 2023-07-27 09:05 | BH.SGPN.GN ---
Behaviors/Verbalizations/Mental Status: [] Eye contact good. Motor activity appropriate. Speech within normal limits. Affect congruent, mood content. Thoughts linear, logical, no signs of hallucinations or delusions. Reviewed client?s symptom tracker, denies SI, plan, or intent as of 07/27/2023. Client Response/Progress/Benefit: [] Client receptive of session, attentive and willing to process with group. Identified mental health ?wins? today as using opposite action to continue to get out the house and reduce overall isolation. Noted that her cousin has been helpful in encouraging her to be social. Additional win noted as making plans to spend time with two friends and get lunch following group today. Identified current stressor as accidentally missing one of her finals and not yet hearing back from her professor on whether or not she will be able to make it up. Receptive of encouragement from the group. Recommended continued IOP tx to continue to improve mood stability, promote continued socialization, and prevent decompensation. Narrative Note: []
--- NOTE | 2023-07-27 11:08 | BH.SGPN.GN ---
Behaviors/Verbalizations/Mental Status: []Pt alert and oriented, casually dressed and groomed. Eye contact good. Motor activity appropriate. Speech within normal limits. Affect congruent, mood content. Thoughts linear, logical, no signs of hallucinations or delusions. Client Response/Progress/Benefit: []Pt engaged participant AEB listening attentively to others and providing input throughout group. Pt worked within their small group to identify strategies to manage inappropriate guilt. Identified a personal example of inappropriate guilt as ?saying sorry for everything I do.? Insight cues a feeling of being a burden. Pt wants to work on combatting inappropriate guilt by practicing self-forgiveness and challenging distortions. Pt seemed to benefit from learning about strategies to manage appropriate and inappropriate guilt. Pt will continue IOP tx to promote mood stability and reinforce healthy coping skills. Narrative Note: []
--- NOTE | 2023-07-27 12:12 | PCM.BH.PN_ITS ---
Progress Note Progress Note: History of Present Illness/Interim History: The patient is a 17-year-old single, female with a history of anxiety and depression who is seen in follow- up at the [facility] behavioral health IOP. I last saw the patient 3 weeks ago and at that time her Effexor XR was increased to 150 mg daily. She has tolerated this change well and has been compliant with her medication. The patient wished to discuss her recent appointment to be evaluated for ADHD and had some documentation from this appointment supporting the diagnosis. Patient states that she does not study and never has. She just recently finished and is on break from her college exams and states that she thinks she did okay overall and her grades are A's and B's. She did miss 1 exam because she thought it was a different time and she may fail that class if she cannot take the exam at a different time. She plans to contact her professor and discuss her mental health issues during this time also. She denies passive thoughts of , hopelessness, suicidal ideation, plan for suicide, homicidal ideation, hallucinations or delusions. She is looking forward to vacation and has vacations planned this summer with friends and family. She is still working as an [employer] part-time. She has not cut herself in about 5 weeks now and is using the skills learned in the IOP to prevent self- harm. She denies any purging. She feels that overall her mood is less depressed now and less anxious. Current Psychiatric Medications: [] Effexor XR 150 mg p.o. daily (x 3 weeks) Mental Status Examination: [] Patient is a 17-year-old overweight female who wears glasses and is casually dressed and groomed with good hygiene. She has no psychomotor agitation or retardation. Eye contact is good and speech is normal rate and rhythm and fluent with no pressure. Mood is mildly depressed and anxious. Affect is minimally constricted. Thought process is goal-directed and organized. Thought content: Patient is hopeful for the future and looking forward to vacation. There is no evidence of passive thoughts of , suicidal ideation, plan for suicide, homicidal ideation, hallucinations, delusions. Reality testing is intact. Judgment is intact. Insight fair. Impulsivity is high. Diagnoses: [] 1. Major depressive disorder, recurrent, moderate 2. Generalized anxiety disorder 3. Cluster B traits 4. Possible AD D 5. History of bulimia nervosa 6. Primary support and school/career issues Plan: [] Patient may discharge soon from the [facility] as she has made some progress and is looking forward to her summer vacations. She felt safe during the interview and if it anytime she does not feel safe she will let us know or go to the emergency room. No medication changes were made today. She will continue to follow-up with her outpatient providers and I will see the patient in follow- up while in the IOP program. She will continue to try to decrease her marijuana use.
--- NOTE | 2023-07-28 09:00 | BH.SGPN.GN ---
Behaviors/Verbalizations/Mental Status: []pt eye contact good, casually dressed, motor activity appropriate, speech normal rate and tone, mood euthymic and anxious, congruent affect, thoughts linear and intact, no evidence of delusions or hallucinations. Per daily symptom tracker pt denies SI and intention. Client Response/Progress/Benefit: [] Client responded well to session AEB listening to others and sharing thoughts/feelings. On her symptom tracker pt reported a 2/5 for depression and a 4/5 for anxiety. Pt stated she does feel like her mood is better today. Client reported mental health positive as hanging out with friends recently. Stated she went clothes shopping with them and started to feel a little down because one of the stores didn't have her size clothing. Pt shared she was able to challenge her negative thoughts and find a store that she could buy clothes from. Client stated additional positive as being able to keep up with her bills. Stated consistent stressor is money worries. Appeared to benefit from support from peers. Will continue IOP tx to promote use of healthy coping skills, challenge distorted thoughts, and prevent decompensation. Narrative Note: []
--- NOTE | 2023-07-28 11:05 | BH.SGPN.GN ---
Behaviors/Verbalizations/Mental Status: [] Eye contact is good. Motor activity is appropriate. Appearance is casual. Speech is Appropriate. Mood is content. Affect is congruent. Thoughts are linear and logical. No evidence of psychosis Client Response/Progress/Benefit: [] Pt was an active participant in group discussion and activity. Worked with group to identify strategies to help overcome barriers and obstacles to desired reality. Group developed strategies for the common barriers. Identified personal barriers to desired reality and choose one obstacle to work. Pt stated she wants to work on barrier of negative body image by practicing consistent self-care. Pt seemed to benefit from increased repertoire of healthy coping skills/strategies to overcome common barriers to moving forward. Pt is to continue IOP to improve confidence, increase healthy coping skills, and prevent decompensation. Narrative Note: []
--- NOTE | 2023-07-28 13:36 | BH.MDN_ITS ---
Multi-Disciplinary Note Note 30-min Individual: Time Started:: 10:15 Date: 07/28/23 Purpose of session/treatment goals addressed:: Purpose of session was to identify treatment progress, complete maintenance plan and solidify aftercare plans. Eye Contact:: Good Motor Activity:: Restless Appearance:: Casual Speech:: Appropriate Mood:: Anxious Affect:: Full Thoughts:: Linear, Logical and No evidence of hallucinations/delusions noted Staff Interventions:: thought challenging, CBT techniques, discharge planning, strengths perspective, reviewed DSM-5, goal setting and other (maintenance plan) Client Response:: Client stated things have been better in the last week. Client reported she is still sad about her best friend leaving for a job but feels like she is been coping better with that compared to previous times when he has left. Client reported she reach out to be a professor about a final that she missed and is worried she is going to fail the class if the professor will give her an extension. Client stated although it is stressful she recognizes that she can easily just retake the class and improve her grades. Client stated work has been a good distraction for her but at times does get sad because of the loss at the longterm. 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 Client expressed anxiety about asking for this raise but recognizes that a lot of the new employees are making more than she is. Client reflected on the treatment progress she has made since starting IOP and recognizes she has improved with decreased depression and anxiety. Client admits that she did not always follow through with homework or utilizing skills consistently. Client worked with therapist to complete maintenance plan in which she identified triggers, warning signs, self-care activities, and healthy coping skills. Client stated she is anxious about being done with the IOP program but recognizes she does have the skills that can help her be successful. Risks/Concerns:: Denies suicidal ideation, plan, intention. Progress Toward Goals/Plan:: Progress noted with client reporting decrease in depression and anxiety with improved daily functioning. Client is feeling a little more down after her best friend moved to a different state for a job. However per client she is handling this stressor more effectively than she did in the past. Client also having a big stressor removed of being done with her semester for college so she can focus on work and not have to have other responsibilities at this time. Client stated she does not have a outpatient counselor yet because she is waiting for her mom to get in contact with [facility] to establish with a counselor through them. Client will continue to follow-up with her PCP for medication management. Plan is for client to discharge from [facility] tomorrow. Time Stopped:: 10:50
--- NOTE | 2023-07-29 09:00 | BH.SGPN.GN ---
Behaviors/Verbalizations/Mental Status: [] Pt alert and oriented, neatly dressed and groomed. Eye contact good. Motor activity appropriate. Speech within normal limits. Affect congruent, mood anxious. Thoughts linear, logical, no signs of hallucinations or delusions. Reviewed pt?s symptom tracker, no risk for suicidal ideation, plan, or intent 07/29/23 Client Response/Progress/Benefit: []Pt responded well to session, attentive and engaged. Pt's last day of IOP tx and pt reports per the daily check-in that she is functioning and feeling better than usual. Pt reports feeling stressed and okay about leaving IOP. Group offered pt support and reminded pt to use her coping skills. Pt reports her wins as advocating for herself at work which resulted in getting a raise and getting good grades in her ethics class. Pt is also stressed about getting lunch with her mother today, but she received good feedback on boundary setting and communicating with her mom. Pt appeared to benefit from connecting with peers. Pt will discharge from IOP tx today as pt has accomplished her tx goals and no longer meets criteria for IOP level of care. Narrative Note: []
--- NOTE | 2023-07-29 10:10 | BH.SGPN.GN ---
Behaviors/Verbalizations/Mental Status: [] Eye contact is good. Motor activity is appropriate. Appearance is casual. Speech is Appropriate. Mood is euthymic. Affect is full. Thoughts are linear and logical. No evidence of psychosis Client Response/Progress/Benefit: [] Client was an active participant during interactive group discussions. Attentive during psychoeducation on the six types of boundaries (physical, emotional, intellectual, sexual, time, and material) AEB note-taking and input in group discussions. Along with peers contributed to interactive discussion on defining what a boundary is in mental health. Client along with peers identified challenges to setting boundaries which included; fear of conflict, being uncomfortable, believing they are being rude or mean, etc. Client along with peers identified the benefits to setting boundaries such as healthier relationships, stronger sense of self, and improved confidence. Client benefited from increased awareness and insight on the importance/benefit to setting health boundaries. Plan to discharge from [facility] today. Narrative Note: []
--- NOTE | 2023-07-29 11:10 | BH.SGPN.GN ---
Behaviors/Verbalizations/Mental Status: [] Eye contact is good. Motor activity is appropriate. Appearance is casual. Speech is Appropriate. Mood is euthymic. Affect is congruent. Thoughts are linear and logical. No evidence of psychosis. Client Response/Progress/Benefit: [] Client responded well to session AEB listening attentively to peers, providing some input, as well as taking notes throughout. Client contributed throughout psychoeducation on different boundary setting styles. Participated in group discussion brainstorming various strategies for improving healthy boundary settings, as a group identified starting with easy/small boundaries, opening up to one trusted person and not overly apologizing as strategies to try. Worked on reflecting what she would like to work on to improve boundaries. Seemed to benefit from increased awareness of how different boundary styles can impact mental health. Will continue IOP tx to increase consistent use of healthy coping skills, challenge negative and distorted thoughts, and prevent decompensation.
--- NOTE | 2023-07-29 13:38 | BH.DS_ITS ---
Discharge Summary Demographics Date of Admission:: 06/06/23 Discharge Date: 07/29/23 Presenting Problems at Admission:: The patient is a 17-year-old single female with a history of anxiety and depression who was referred to the [facility] behavioral health IOP by her primary care doctor for worsening symptoms of depression and anxiety. 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 She has been having symptoms of sadness, crying, irritability, hopelessness, worthlessness, guilt, low motivation, sleeping 6 hours a night but wants to stay in bed all day, low energy, passive thoughts of . She is a worrier by nature and has racing thoughts at times and ruminates negatively often. She is having panic attacks a few times a week. Discharge Diagnoses:: 1. Major depressive disorder, recurrent, severe without psychosis F33.2 2. Generalized anxiety disorder 3. Cluster B traits 4. History of bulimia nervosa Reason for Discharge:: Client has shown treatment progress with decreased depression and anxiety. Pt has met maximum benefit from IOP and reports feeling ready for discharge from IOP. Treatment Progress During Treatment & Response: Progress noted per DSM 5 cross cutting measure at discharge which indicates a 50% decrease in depression, 45% reduction in anxiety, and an overall 23% reduction in mental health symptoms. Client's response was mixed throughout program. Client consistently attended IOP sessions, provided some input during group sessions, but struggled with follow through on goals/skill use learned from group and individual sessions. Issues Still to be Addressed:: Client could benefit from continued work on increasing consistency with using healthy coping skills, challenge distorted/negative thoughts, decreasing anxious avoidance, and building confidence. Discharge Recommendations/Instructions:: Client encouraged to follow up with PCP for continued medication management. Client has been working with her mom to establish with a counselor through the [place]. Discharge Handout
== END 2023-07-29 12:13 | disposition home or self-care (01) ==
LOC: BHIOP 06:32
PROVIDERS: PCP Pediatrics; Referring Provider Psychiatry & Neurology Psychiatry; Visit Provider Psychiatry & Neurology Psychiatry
DX: F33.1 Major depressive disorder, recurrent, moderate (principal); F41.1 Generalized anxiety disorder; F50.2 Bulimia nervosa; Z79.899 Other long term (current) drug therapy
CPT/HCPCS: S9480; 90832; 90834; 90853

== ENCOUNTER 2023-10-03 09:58 | Emergency (ER) | payer OTHER, SELFPAY ==
[2023-10-03 10:00] VITALS: BP 131/104; PULSE 95; RESP 16; TEMP 36.1; O2SAT 100; BMI 42.0
[2023-10-03 10:02] VITALS: BP 131/104; PULSE 95; RESP 16; TEMP 36.1; O2SAT 100
[2023-10-03 11:02] VITALS: BP 128/99; PULSE 93; RESP 18; TEMP 36.2; O2SAT 99
--- NOTE | 2023-10-03 11:13 | EX.ED.DYSGE1 ---
HPI History of Present Illness Chief Complaint: Edema Narrative Narrative: 17-year-old female presenting after she obtained bedbug bites on her left upper extremities. She states that this was on Tuesday. She notes that she is having more than just the original itching and erythema. He states to be getting worse. It spreading on the left arm more than the right arm. She states she did remove her close and has been using topical hydrocortisone to help with the swelling. Three 3-year-old concern is that this is secondary to infected. No fevers or chills or other systemic signs or symptoms. [facility] Medical History History of bulimia Generalized anxiety disorder Major depressive disorder, recurrent severe without psychotic features Physical exam, pre-employment Home Medications ?Medication ?Instructions ?Recorded ?Last Taken ?Type cephalexin 500 mg capsule 500 mg PO Q6 #40 CAPSULES 10/03/23 Unknown Rx Allergy/AdvReac Type Severity Reaction Status Date / Time minocycline Allergy Hives Verified 10/03/23 09:59 Surgical History History of tonsillectomy Social History Smoking Status: Current every day smoker tobacco type: e-cigarettes ROS ROS ED Constitutional Constitutional ED: Denies chills, fever(s) or sweats Eyes Eyes: Denies blurry vision or change in vision ENT ENT ED: Denies ear pain or sore throat Cardiovascular Cardiovascular: Denies chest pain, palpitations or racing heartbeat Respiratory/Chest Respiratory/Chest: Denies cough, dyspnea or sputum Gastrointestinal Gastrointestinal: Denies abdominal pain, constipation, diarrhea, nausea or vomiting Genitourinary Genitourinary ED: Denies dysuria, hematuria or urinary frequency Musculoskeletal Musculoskeletal: Denies arthralgias, myalgias or neck pain Integumentary Reports rash; Denies abscess or Abrasions Neurologic Neurologic: Denies headache(s), paresthesias or weakness Psychiatric Psychiatric: Denies anxiety, depression, suicidal ideation or suicidal thoughts Endocrine Endocrinology: Denies polydipsia or polyuria EXAM Physical Exam Const Vital Signs: 10/03/23 10:00 10/03/23 10:02 10/03/23 10:08 Temperature 96.9 F L 96.9 F L Temperature Source Temporal Temporal Pulse Rate 95 95 Respiratory Rate 16 16 Respiratory Effort Normal Non-Labored Respiratory Pattern Normal Blood Pressure 131/104 H 131/104 H Blood Pressure Mean 113 113 Pulse Ox 100 100 Oxygen Delivery Method Room Air Room Air 10/03/23 11:02 10/03/23 11:20 Temperature 97.2 F L 97.9 F Temperature Source Temporal Pulse Rate 93 89 Respiratory Rate 18 18 Respiratory Effort Respiratory Pattern Blood Pressure 128/99 H 124/89 H Blood Pressure Mean 108 100 Pulse Ox 99 99 Oxygen Delivery Method Room Air Positive well nourished General Appearance ED: NAD HEENT Reports moist mucous membranes Eyes PERRL and EOMs intact bilaterally Resp normal respiratory effort Cardio regular rate and regular rhythm Extremity Extremity Narrative: There is a large area of erythema on the upper posterior part of the left arm. There is multiple bedbug bites on his extremities. The right arm has had bedbug bites as well and a small area of erythema. No crepitus palpated. There is increased warmth. Neuro oriented x3 Sensorium / Orientation: alert Psych mental status grossly normal MDM MDM MDM Narrative Medical decision making narrative: Patient had bedbug bites which happened Tuesday that she appears to have secondary infection of this. We will start the patient on Keflex. He is no history of MRSA. Recommendation keep symptoms dry. Return precautions were discussed. Impression 1. Bedbug bites 2. Cellulitis Lab Data Attestation: I reviewed the patient's lab results. Discharge Plan Triage Chief Complaint: Edema ED Provider: Marvin Souza Dx/Rx/DC Orders Instructions: ED Cellulitis, ED Bedbug Bites Prescriptions: New cephalexin 500 mg capsule 500 mg PO Q6 Qty: 40 0RF Primary Care Provider: Kylah Hopper Referrals: Kylah Hopper, [employer] [Primary Care Provider] - Print Language: Stateless Disposition Disposition: Home, Self Care Discharge Date/Time: 10/03/23 11:21
[2023-10-03] MEDS: Cephalexin 250 MG Capsule 500 MG PO (11:15)
[2023-10-03 11:20] VITALS: BP 124/89; PULSE 89; RESP 18; TEMP 36.6; O2SAT 99
== END 2023-10-03 11:21 | disposition home or self-care (01) ==
PROVIDERS: Emergency Provider Student in an Organized Health Care Education/Training Program; PCP Nurse Practitioner Family; Visit Provider Student in an Organized Health Care Education/Training Program
DX: L03.114 Cellulitis of left upper limb (principal); S40.862A Insect bite (nonvenomous) of left upper arm, initial encounter; W57.XXXA Bitten or stung by nonvenomous insect and other nonvenomous arthropods, initial encounter; F17.290 Nicotine dependence, other tobacco product, uncomplicated
CPT/HCPCS: 99282

== ENCOUNTER 2024-01-25 15:09 | Emergency (ER) | payer OTHER, SELFPAY ==
[2024-01-25 15:10] VITALS: BP 151/102; PULSE 120; RESP 18; TEMP 36.8; O2SAT 99; BMI 41.4
[2024-01-25 15:19] VITALS: BP 125/81; BP 126/82; BP 134/71; PULSE 102; PULSE 4; PULSE 96
[2024-01-25] MEDS: Ondansetron 4 MG/2 ML Vial IV (15:29)
[2024-01-25 15:45] LABS: Absolute Lymphocyte Count 1.92 X10^3/uL (0.83-4.51); Absolute Neutrophil Count 11.2 X10^3/uL (2.0-7.7); Basophil# 0.09 X10^3/uL; Basophil% 0.6 % (0-1); Eosinophil# 0.05 X10^3/uL; Eosinophils% 0.3 % (0-5); Hematocrit 44.5 % (37-47); Lymphocyte # 1.92 X10^3/ul (0.83-4.51); Lymphocyte % 12.9 % (19-41); Mean Corp Hgb Conc 33.7 g/dL (32-36); Mean Corpuscular Hgb 28.4 pg (27.0-32.0); Mean Corpuscular Volume 84.3 fL (81-99); Mean Platelet Vol. 10.8 fl (6.2-12.0); Monocyte# 1.56 X10^3/uL; Monocyte% 10.5 % (0-10); NRBC Flagged by Analyzer 0 % (0-5); Neutrophil # 11.18 X10^3/uL (2.7-7.7); Neutrophil % 75.2 % (47-70); POSITIVE DIFFERENTIAL YES; Platelet Count 242 K/mm3 (150-450); RBC Distribution Width CV 13.1 % (11.6-14.6); Red Blood Count 5.28 M/mm3 (4.2-5.4); White Blood Count 14.9 K/mm3 (4.4-11.0)
[2024-01-25 15:51] LABS: Differential Indicated SCAN CRITERIA MET
[2024-01-25 15:58] LABS: Anion Gap 7 (5-15); BUN 8 mg/dL (7-18); BUN/Creat Ratio 9.5 RATIO (10-20); Calcium,Total 9.6 mg/dL (8.5-10.1); Chloride 106 mmol/L (98-107); Creatinine, Serum 0.85 mg/dL (0.55-1.02); EST Glomerular Filtration Rate 91 mL/min (>60); Est Glom Filt Rate - Afr Amer 110 mL/min (>60); Estimated Creatinine Clearance 132.33 ml/min; Glucose 102 mg/dL (74-106); Potassium 3.5 mmol/L (3.5-5.1); Sodium Level 137 mmol/L (136-145)
[2024-01-25 16:43] VITALS: BP 121/80; PULSE 78; RESP 18; TEMP 37; O2SAT 97
[2024-01-25 17:01] LABS: Differential Comment SCANNED
[2024-01-26 12:02] LABS: Pathologist Review Reviewed
== END 2024-01-25 16:58 | disposition home or self-care (01) ==
PROVIDERS: Emergency Provider Emergency Medicine; PCP Nurse Practitioner Family; Referring Provider Emergency Medicine; Visit Provider Emergency Medicine
DX: R10.84 Generalized abdominal pain (principal); F33.2 Major depressive disorder, recurrent severe without psychotic features; R19.7 Diarrhea, unspecified; R11.0 Nausea; R00.0 Tachycardia, unspecified; R61 Generalized hyperhidrosis; F17.290 Nicotine dependence, other tobacco product, uncomplicated; F41.1 Generalized anxiety disorder; Z79.899 Other long term (current) drug therapy
CPT/HCPCS: 80048; 85025; 96374; 99283; A4216; J2405